=== PATIENT | female | born 1965 | race Caucasian/White ===

== ENCOUNTER 2017-03-18 16:39 | Emergency (ER) | payer SELFPAY ==
[~2017-03-18] VITALS: Ht 160 cm; Wt 107.0 kg
[2017-03-18 19:40] VITALS: BP 151/101
== END 2017-03-18 19:42 | disposition home or self-care (01) ==
LOC: EME 16:39
PROC: 3E0234Z Introduction of Serum, Toxoid and Vaccine into Muscle, Percutaneous Approach (ICD-10-PCS; principal; 2017-03-18)
DX: Z20.3 Contact with and (suspected) exposure to rabies (principal)
CPT/HCPCS: 99281; 99283